=== PATIENT | female | born 1965 | race Caucasian/White ===

== ENCOUNTER → 2016-05-03 | Outpatient (CLI) | payer OTHER ==
[~2016-05-03] MED LIST: BUPR-83 PO; DULO60CA44 PO; QUET300T2 PO
--- NOTE | 2016-05-03 16:34 | DIAGNOSTIC IMAGING REPORT ---
RIGHT HIP UNILATERAL 2 VIEWS CLINICAL HISTORY: M25.551 M54.5 Right pain COMPARISON: None. DISCUSSION: The bones and joint spaces appear intact. There is no evidence of fracture, dislocation or bony disease. There is no evidence for soft tissue swelling. IMPRESSION: Negative study. Electronically signed by: Kunal Washington M.D. 05/03/2016 4:32 PM Dictated Date/Time: 05/03/2016 4:32 PM
--- NOTE | 2016-05-03 16:35 | DIAGNOSTIC IMAGING REPORT ---
LUMBAR SPINE 5 VIEWS HISTORY: Pain M25.551 M54.5 COMPARISON: None. FINDINGS: There is no fracture. No subluxation. Mild scoliosis. Mild degenerative disc change. IMPRESSION: Mild degenerative change. Scoliosis. No acute process. Electronically signed by: Kunal Washington M.D. 05/03/2016 4:34 PM Dictated Date/Time: 05/03/2016 4:33 PM
== END | disposition home or self-care (01) ==
LOC: C.RAD 15:54
DX: M25.551 Pain in right hip (principal); M54.5 Low back pain

== ENCOUNTER → 2016-06-20 | Outpatient (CLI) | payer OTHER ==
--- NOTE | 2016-06-21 15:28 | MAMMOGRAPHY REPORT ---
BILATERAL DIGITAL SCREENING MAMMOGRAM TOMOSYNTHESIS WITH CAD: 06/20/2016 CLINICAL HISTORY: Routine screening. Patient has no complaints. TECHNIQUE: Breast tomosynthesis in addition to standard 2D mammography was performed. Current study was also evaluated with a Computer Aided Detection (CAD) system. COMPARISON: Comparison is made to exams dated: 06/17/2015 mammogram, 05/28/2014 ultrasound, 05/28/2014 m ammogram, 05/29/2013 mammogram, 05/28/2012 mammogram, and 05/27/2011 mammogram - [facility]. BREAST COMPOSITION: The tissue of both breasts is heterogeneously dense, which may obscure small ma sses. FINDINGS: There are bilateral subcentimeter partially circumscribed, low-density masses scattered th roughout the breasts, fluctuating in size compared to prior exams and most compatible with fluctuati ng cysts. There are a few benign-appearing microcalcifications. No suspicious spiculated or irregu lar mass, architectural distortion or cluster of microcalcifications is seen. IMPRESSION: ACR BI-RADS CATEGORY 1: NEGATIVE There is no mammographic evidence of malignancy. A 1 year screening mammogram is recommended. The p atient will receive written notification of the results. Approximately 10% of breast cancers are not detected with mammography. A negative mammographic repor t should not delay biopsy if a clinically suggestive mass is present. Esperanza Chun M.D. ay/:06/20/2016 22:22:24 Database Manager: Alysa FIELD)(Magda), [facility] letter sent: Normal 1/2 BI-RADS Code: ACR BI-RADS Category 1: Negative
== END | disposition home or self-care (01) ==
LOC: C.MAMM 14:52
DX: Z12.31 Encounter for screening mammogram for malignant neoplasm of breast (principal)

== ENCOUNTER → 2017-01-10 | Outpatient (CLI) | payer OTHER ==
[2017-01-10 13:12] LABS: BASO % 0.2 %; BASO ABS # 0.01 K/uL (0-0.2); COMPLETE YES; EOS % 0.6 %; HEMATOCRIT 41.2 % (37-47); IG% 0.2 %; LYMPH ABS # 1.48 K/uL (1.2-3.4); MEAN CELL VOLUME 89.8 fL (80-100); MEAN CORPUSCULAR HEMOGLOBIN 28.5 pg (25-34); MEAN CORPUSCULAR HGB CONC 31.8 g/dl (32-36); MEAN PLATELET VOLUME 11.3 fL (7.4-10.4); MONO % 5.8 %; NEUT % 61.2 %; PLATELET COUNT 202 K/uL (130-400); RED BLOOD COUNT 4.59 M/uL (4.2-5.4); WHITE BLOOD COUNT 4.62 K/uL (4.8-10.8)
[2017-01-10 13:41] LABS: ALT/SGPT 19 U/L (12-78); BLOOD UREA NITROGEN 15 mg/dl (7-18); BUN/CREATININE RATIO 15.3 (10-20); CALCIUM 9.4 mg/dl (8.5-10.1); CARBON DIOXIDE 30 mmol/L (21-32); CHLORIDE 103 mmol/L (98-107); CHOLESTEROL 264 mg/dl (0-200); CREATININE 0.99 mg/dl (0.60-1.20); GLUCOSE 86 mg/dl (70-99); SODIUM 140 mmol/L (136-145)
[2017-01-10 13:52] LABS: ALB/GLOB RATIO 0.9 (0.9-2); ALKALINE PHOSPHATASE 119 U/L (45-117); AST/SGOT 12 U/L (15-37); CHOLESTEROL/HDL RATIO 5.4; HDL CHOLESTEROL 49 mg/dl; LDL CHOLESTEROL CALCULATED 169 mg/dl; TRIGLYCERIDES 231 mg/dl (0-150); VERY LOW DENSITY LIPOPROT CALC 46 mg/dl
== END | disposition home or self-care (01) ==
LOC: C.LAB 11:57
PROVIDERS: ATTEND Psychiatry & Neurology Geriatric Psychiatry
DX: Z79.899 Other long term (current) drug therapy (principal)

== ENCOUNTER → 2017-06-21 | Outpatient (CLI) | payer OTHER ==
--- NOTE | 2017-06-22 14:45 | MAMMOGRAPHY REPORT ---
BILATERAL DIGITAL SCREENING MAMMOGRAM TOMOSYNTHESIS WITH CAD: 06/21/2017 CLINICAL HISTORY: Routine screening. Patient has no complaints. TECHNIQUE: Breast tomosynthesis in addition to standard 2D mammography was performed. Current study was also evaluated with a Computer Aided Detection (CAD) system. COMPARISON: Comparison is made to exams dated: 06/20/2016 mammogram, 06/17/2015 mammogram, 05/28/2014 ul trasound, 05/28/2014 mammogram, 05/29/2013 mammogram, and 05/28/2012 mammogram - [facility] er. BREAST COMPOSITION: The tissue of both breasts is heterogeneously dense, which may obscure small mas ses. FINDINGS: No suspicious masses, calcifications, or areas of architectural distortion are noted in ei ther breast. There has been no significant interval change compared to prior exams. There are bilat eral subcentimeter partially circumscribed, low-density masses scattered throughout the breasts, fluc tuating in size compared to prior exams and most compatible with fluctuating cysts. Scattered bilate ral benign-appearing calcifications are stable. IMPRESSION: ACR BI-RADS CATEGORY 2: BENIGN There is no mammographic evidence of malignancy. A 1 year screening mammogram is recommended. The pa tient will receive written notification of the results. Approximately 10% of breast cancers are not detected with mammography. A negative mammographic report should not delay biopsy if a clinically suggestive mass is present. Damaris Copeland M.D. /:06/21/2017 15:31:25 Timber Management Professor: Padma BENOIT(Dyana)(Magda), [facility] letter sent: Normal 1/2 BI-RADS Code: ACR BI-RADS Category 2: Benign
== END | disposition home or self-care (01) ==
LOC: C.MAMM 14:34
PROVIDERS: ATTEND Physician Assistant
DX: Z12.31 Encounter for screening mammogram for malignant neoplasm of breast (principal)